=== PATIENT | male | born 1970 ===

== ENCOUNTER 2024-03-24 13:51 | Emergency (ER) | payer MEDICARE, OTHER ==
[~2024-03-24] VITALS: Ht 172.7 cm; Wt 86.4 kg
[2024-03-24] MEDS ORDERED: DEXTROSE 50%-WATER 25 GM/50 ML SYRINGE IVP ONE (14:19)
[2024-03-24 14:26] LABS: HEMATOCRIT 25.7 % (41-53); HEMOGLOBIN 7.2 g/dL (13.5-17.5); MEAN CORPUSCULAR HEMOGLOBIN 29.7 pg (26.0-34.0); MEAN CORPUSCULAR HGB CONC 28.2 G/dL (31.0-37.0); MEAN CORPUSCULAR VOLUME 105 fL (80-100); PLATELET COUNT (AUTO) 265 K/uL (150-450); RED BLOOD CELL COUNT(AUTO) 2.44 MIL/uL (4.50-5.90); RED CELL DISTRIBUTION WIDTH 20.9 % (11.5-14.5); WHITE BLOOD COUNT (AUTO) 14.3 K/uL (4.5-11.0)
[2024-03-24] MEDS: DEXTROSE 50%-WATER 25 GM/50 ML SYRINGE IVP ONE (14:30)
[2024-03-24] MEDS ORDERED: NOREPINEPHRINE 8 MG/0.9 % NACL 250 ML IV ONE (14:33)
[2024-03-24] MEDS ORDERED: PHENYLEPHRINE HCL IN 0.9% NACL 400 MCG/10 ML SYRINGE IVP ONE (14:33)
[2024-03-24 14:35] LABS: GLUCOMETER DEV NAME(LOC) ERT.6; GLUCOSE,POINT OF CARE 67 MG/DL (70-110)
[2024-03-24 14:41] LABS: B-TYPE NATRIURETIC PEPTIDE 507 pg/mL (0-100)
[2024-03-24 14:47] LABS: TROPONIN I-HIGH SENSITIVITY 18 ng/L (<76)
[2024-03-24] MEDS: *CLINICAL-LEVOFLOXACIN IVPB DOSING CLINICAL ONE (14:54)
[2024-03-24 14:56] LABS: BAND NEUTROPHILS % (MANUAL) 12 % (0-5); LYMPHOCYTES % (MANUAL) 2 % (22-44); METAMYELOCYTES % 1 % (0-0); MONOCYTES % (MANUAL) 1 % (2-9); PLATELET MORPHOLOGY COMMENT GIANT PLTS PRESENT; RBC MORPHOLOGY COMMENT ABNORMAL RBC MORPH; SEGMENTED NEUTROPHILS % 84 % (40-70); TOTAL CELLS COUNTED 100
[2024-03-24 14:59] LABS: AMMONIA 126 umol/L (11-32)
[2024-03-24] MEDS ORDERED: DEXTROSE 50%-WATER 25 GM/50 ML SYRINGE IVP PRN (15:00)
[2024-03-24] MEDS ORDERED: ACETAMINOPHEN 325 MG TABLET PO PRN (15:00)
[2024-03-24] MEDS ORDERED: INSULIN LISPRO 100 UNITS/ML SQ PRN (15:00)
[2024-03-24] MEDS ORDERED: ONDANSETRON HCL 4 MG/2 ML VIAL IVP PRN (15:00)
[2024-03-24] MEDS ORDERED: BISACODYL 10 MG RECTAL RECTAL SUPPOSITORY PR PRN (15:00)
[2024-03-24] MEDS: ALBUMIN HUMAN 25%-12.5GM/50ML 50 ML IV SCH (15:04)
[2024-03-24] MEDS: NOREPINEPHRINE 8 MG/0.9 % NACL 250 ML IV PRN (15:04)
[2024-03-24] MEDS ORDERED: LACTULOSE 200 GM/300 ML RECTAL SOLUTION PR ONE (15:15)
[2024-03-24 15:19] LABS: ALANINE AMINOTRANSFERASE 371 U/L (12-78); ALBUMIN 1.7 g/dL (3.4-5.0); ALKALINE PHOSPHATASE 365 U/L (46-116); ANION GAP 37 mmol/L (8-16); BILIRUBIN,TOTAL 1.5 mg/dL (0.1-1.0); CALCIUM, TOTAL 8.3 mg/dL (8.8-10.5); CHLORIDE 93 mmol/L (98-107); CREATINE KINASE, TOTAL ONLY 91 U/L (39-308); CREATININE 5.54 mg/dL (0.60-1.30); GLOMERULAR FILTR. RATE CALC 11 mL/min (>60); GLUCOSE,RANDOM 68 mg/dL (70-110); POTASSIUM 5.5 mmol/L (3.5-5.1); SODIUM SERUM 138 mmol/L (136-145); THYROID STIMULATING HORMONE 15.24 uIU/mL (0.36-3.74); TOTAL PROTEIN, SERUM 5.4 g/dL (6.4-8.2); UREA NITROGEN, BLOOD 22 mg/dL (7-18)
[2024-03-24 15:19] LABS: ABG BASE EXCESS -24.1 mmol/L (-2.0-3.0); ABG CARBOXYHEMOGLOBIN 0.3 % (0.5-1.5); ABG HCO3 7.8 mmol/L (21.0-28.0); ABG METHEMOGLOBIN 1.4 % (0.0-1.5); ABG OXYGEN CONTENT 11.3 mL/dL (15.0-23.0); ABG OXYGEN SATURATION 96.6 % (94.0-98.0); ABG PCO2 19 mmHg (35.0-48.0); ABG TOTAL HEMOGLOBIN 8.3 G/dL (13.5-17.5); PO2, ARTERIAL BG 116.3 mmHg (83.0-108.0); SOURCE, BLOOD GAS ARTERIAL; TEMPERATURE, FAHRENHEIT, BG 98.6 FAHREN (96.0-98.6)
[2024-03-24 15:20] LABS: ABG A-A DIFF O2 118.7 mmHg (10-20.0); ABG PH 7.097 (7.350-7.450); ALLEN TEST, BLOOD GAS Positive; O2 DEVICE,BLOOD GAS CANNULA (ROOM AIR); SITE, BLOOD GAS RT RADIAL
[2024-03-24 15:21] LABS: CARBON DIOXIDE 8 mmol/L (22-29)
[2024-03-24 15:21] LABS: GLUCOMETER DEV NAME(LOC) ERT.6; GLUCOSE,POINT OF CARE 163 MG/DL (70-110)
[2024-03-24 15:22] LABS: ASPARTATE AMINOTRANSFERASE 2205 U/L (15-37)
[2024-03-24] MEDS ORDERED: ETOMIDATE 2 MG/ML 10 ML VIAL ONE (15:24)
[2024-03-24] MEDS ORDERED: ROCURONIUM BROMIDE 10 MG/ML 5 ML VIAL ONE (15:25)
[2024-03-24 15:45] VITALS: PULSE 120; RESP 20; O2SAT 98
[2024-03-24] MEDS ORDERED: HEPARIN SODIUM,PORCINE 5,000 UNITS/ML VIAL SQ SCH (16:00)
[2024-03-24] MEDS: VANCOMYCIN 1.75GM/WATER(PEG) 350 ML IV ONE (16:07)
[2024-03-24 16:15] LABS: GLUCOMETER DEV NAME(LOC) ERT.6; GLUCOSE,POINT OF CARE 115 MG/DL (70-110)
[2024-03-24] MEDS: MIDAZOLAM HCL 100 MG in SODIUM CHLORIDE 0.9% 180 ML IV PRN (16:27)
[2024-03-24 16:35] VITALS: PULSE 125; TEMP 95.4
[2024-03-24] MEDS: LEVOFLOXACIN 750 MG/D5% WATER 150 ML IV ONE (16:39)
[2024-03-24] MEDS ORDERED: 0.9% SODIUM CHLORIDE 10 ML SYRINGE IVP ONE (16:48)
[2024-03-24] MEDS ORDERED: SODIUM CHLORIDE 0.9% 100 ML ONE (16:48)
[2024-03-24] MEDS ORDERED: IOHEXOL 300 MG/ML 100 ML VIAL ONE (16:48)
[2024-03-24 16:52] LABS: ABG BASE EXCESS -25.8 mmol/L (-2.0-3.0); ABG CARBOXYHEMOGLOBIN 0.3 % (0.5-1.5); ABG HCO3 6.4 mmol/L (21.0-28.0); ABG METHEMOGLOBIN 1.4 % (0.0-1.5); ABG OXYGEN CONTENT 12.8 mL/dL (15.0-23.0); ABG OXYGEN SATURATION 99.8 % (94.0-98.0); ABG OXYHEMOGLOBIN 98.1 % (94.0-98.0); ABG PCO2 44 mmHg (35.0-48.0); ABG TOTAL HEMOGLOBIN 8.8 G/dL (13.5-17.5); SOURCE, BLOOD GAS ARTERIAL; TEMPERATURE, FAHRENHEIT, BG 99.4 FAHREN (96.0-98.6)
[2024-03-24 16:53] LABS: ALLEN TEST, BLOOD GAS Positive; PO2, ARTERIAL BG 264.6 mmHg (83.0-108.0); SITE, BLOOD GAS RT RADIAL
[2024-03-24 16:54] LABS: ABG A-A DIFF O2 403.2 mmHg (10-20.0); O2 DEVICE,BLOOD GAS VENTILATOR (ROOM AIR); PEEP,BG 5 cm H2O; SPONTANEOUS VT, BG 450 ml; VT, ABG 450 ml
[2024-03-24] MEDS ORDERED: SODIUM BICARBONATE [ADULT] 8.4% 50 MEQ/50 ML SYRINGE IVP ONE (17:06)
[2024-03-24 17:07] LABS: TROPONIN I-HIGH SENSITIVITY 38 ng/L (<76)
[2024-03-24 17:08] LABS: INR 6.7 (0.9-1.1)
[2024-03-24] MEDS: SODIUM BICARBONATE [ADULT] 8.4% 50 MEQ/50 ML SYRINGE IVP ONE (17:17)
[2024-03-24 17:20] VITALS: BP 109/61; RESP 20; O2SAT 99
[2024-03-24] MEDS ORDERED: PHYTONADIONE 10 MG/ML VIAL SQ ONE (17:30)
[2024-03-24 20:35] LABS: GLUCOMETER DEV NAME(LOC) ERT.6; GLUCOSE,POINT OF CARE 98 MG/DL (70-110)
[2024-03-24] MEDS ORDERED: CHLORHEXIDINE GLUCONATE 2% TOWELETTE [2'S/6'S] TP SCH (22:00)
[2024-03-25] MEDS ORDERED: PANTOPRAZOLE SODIUM 40 MG/VIAL IVP SCH (09:00)
[2024-03-26] MEDS ORDERED: LEVOFLOXACIN 500 MG/D5% WATER 100 ML IV SCH (19:00)
== END 2024-03-24 19:48 ==
LOC: EMS 14:00 → EDH 14:50 → UNDOADMIN 14:50
DX: A41.9 Sepsis, unspecified organism (principal); N18.6 End stage renal disease; G93.40 Encephalopathy, unspecified; N17.9 Acute kidney failure, unspecified; D63.1 Anemia in chronic kidney disease; E03.9 Hypothyroidism, unspecified; E11.22 Type 2 diabetes mellitus with diabetic chronic kidney disease; E11.649 Type 2 diabetes mellitus with hypoglycemia without coma; Z99.2 Dependence on renal dialysis; I10 Essential (primary) hypertension
CPT/HCPCS: 99291; 94002; 93306; 70450; 71045; 76700; 80053; 82140; 82550; 82962; 83605; 83880; 84443; 84484; 85025; 85610; 85730; 87040; 82805; 36600; 71260; 72193; 74160; 93005; 36415; P9047; J3490 ×5; J3430; J1956; J7050 ×2; Q9967; J2250; 96365; 96366; 96367; 96368; 96375